=== PATIENT | female | born 1980 | race Caucasian/White ===

== ENCOUNTER 2019-03-17 12:15 | Emergency (ER) | payer OTHER ==
[~2019-03-17] VITALS: Ht 172.7 cm; Wt 63.6 kg
[~2019-03-17 12:15] MED LIST: NO HOME MEDICATIONS; NORCO 325 MG-7.1 TAB PO
[2019-03-17 12:23] VITALS: BP 144/71; TEMP 98.7
[2019-03-17] MEDS ORDERED: MOTRIN 800800 MG/TAB PO (13:33)
[2019-03-17] MEDS ORDERED: LIDODERM 5% PATC1 EA TP (13:33)
[2019-03-17 13:45] VITALS: PULSE 98
== END 2019-03-17 13:45 | disposition home or self-care (01) ==
LOC: COL.ER 12:15
DX: M54.2 Cervicalgia (principal)